=== PATIENT | male | born 1950 | race Caucasian/White ===

== ENCOUNTER 2019-10-11 09:17 | Emergency (ER) | payer OTHER, SELFPAY ==
[2019-10-11 09:20] VITALS: BP 144/93; PULSE 80; RESP 17; TEMP 36.4; O2SAT 94; BMI 21.8
--- NOTE | 2019-10-11 09:32 | XR_ITS ---
WS: [id number] LEFT FEMUR: 2 VIEW(S) TECHNIQUE: AP and lateral. HISTORY: trauma COMPARISON: None available. No fracture or dislocation. Soft tissue edematous changes over the LEFT hip and thigh. Extensive vascular calcifications in the femoral artery. XR/XR femur LT min 2V* [id number] Impression: Soft tissue edema lateral to the LEFT hip. No fracture.
--- NOTE | 2019-10-11 09:32 | XR_ITS ---
WS: [id number] LEFT SHOULDER: 2 VIEW(S) TECHNIQUE: Internal and external rotation. HISTORY: trauma COMPARISON: None available. No fracture or dislocation or soft tissue abnormality. Severe degenerative changes at the AC joint. Joint space narrowing with osteophytes. Mild narrowing o f the glenohumeral joint. Visualized LEFT upper lung is clear. XR/XR shoulder LT min 2V* [id number] IMPRESSION: 1. Severe LEFT AC joint arthritis. 2. Mild glenohumeral joint arthritis.
--- NOTE | 2019-10-11 09:33 | ED_ITS ---
HPI - Extremity Problem General: Chief complaint: Extremity Injury, Lower Stated complaint: left shoulder pain Time Seen by Provider: 10/11/19 09:29 History of Present Illness: HPI Narrative: Patient complains about left shoulder pain and left femur pain after a fall a few days ago. Says it hurts to walk and hurts to put pressure on his left mid femur and also has pain with movement of his left shoulder. Patient states that he fell from a standing position when he lost his balance due to kitchen foot on carpet Complaint: extremity pain Onset (ago): day(s) Pain Consistency: intermittent Location: left, upper extremity and lower extremity Severity scale (1-10): 4 Quality: aching Radiation: none Relieving factors: rest Exacerbating factors: range of motion and weight bearing Associated symptoms: Reports no associated symptoms; Deny chest pain, fever(s) or rash Review of Systems Const: Denies: fever, chills or body aches Eyes: Denies: change in vision or blurry vision ENMT: Denies: throat pain or nasal congestion Card: Denies: chest pain or shortness of breath on exertion Resp: Denies: shortness of breath, productive cough or non-productive cough GI: Denies: abdominal pain, nausea or vomiting : Denies: difficulty urinating Musc: Reports: extremity pain (Left femur and left shoulder) Skin/Breast: Denies: rash Neuro: Denies: headache Psych: Denies: anxiety or depression Brian/Lymph: Denies: easy bruising PFSH ED PFSH: Social History Smoking and tobacco status: current every day smoker Physical Exam Const: COMMON NORMALS: no apparent distress, average body habitus and oriented x3 HENMT: COMMON NORMALS: normocephalic HEAD & SCALP: normal to inspection and normocephalic FACE & SINUS: normal facial exam Eye: COMMON NORMALS: conjunctivae normal GENERAL EYE: normal appearance of both eyes CONJUNCTIVA: Yes conjunctivae normal Neck/C-Spine: COMMON NORMALS: no JVD Chest: COMMONS NORMALS: inspection of chest normal Resp: COMMON NORMALS: normal respiratory effort and clear to auscultation bilaterally AUSCULTATION: clear to auscultation bilaterally Cardio: COMMON NORMALS: no JVD, regular rate and regular rhythm RATE: regular rate RHYTHM: regular rhythm GI: COMMON NORMALS: normal to inspection, nondistended, normoactive bowel sounds Extremity: COMMON NORMALS: normal to inspection and full ROM LEFT UPPER EXTREMITY: Yes shoulder joint (Tenderness with range of motion of shoulder and resistive arm test is positive Apley scratch test positive for pain and rotator cuff in the inferior and superior aspect but does have full range of motion neurovascular status intact.) LEFT LOWER EXTREMITY: Yes upper leg (Tenderness to mid femur with palpation no swelling or bruising noted) Neuro: COMMON NORMALS: oriented x3 Course Vital Signs: Vital signs: Vital Signs Temperature 97.6 F 10/11/19 09:20 Pulse Rate 80 10/11/19 09:20 Respiratory Rate 17 10/11/19 09:20 Blood Pressure 144/93 10/11/19 09:20 Pulse Oximetry 94 10/11/19 09:20 Coding Level of Care Code ED [employer] for [employer]
[2019-10-11 10:31] VITALS: BP 144/93; PULSE 60; RESP 17; O2SAT 98
== END 2019-10-11 10:14 | disposition home or self-care (01) ==
PROVIDERS: Emergency Provider Nurse Practitioner Family; Family Provider Nurse Practitioner
DX: M25.512 Pain in left shoulder (principal); M79.652 Pain in left thigh; Z91.81 History of falling; F17.210 Nicotine dependence, cigarettes, uncomplicated
CPT/HCPCS: 12345; 73030; 73552; 99281

== ENCOUNTER 2019-11-08 11:56 | Emergency (ER) | payer OTHER, SELFPAY ==
[2019-11-08 12:04] VITALS: BP 191/123; PULSE 79; RESP 20; TEMP 36.8; O2SAT 95; BMI 22.1
[2019-11-08 12:12] VITALS: BP 170/122; PULSE 74; RESP 14; O2SAT 98
--- NOTE | 2019-11-08 12:39 | XRR_ITS ---
PROCEDURE INFORMATION: Exam: XR Chest, 1 View Exam date and time: 11/08/2019 1:31 PM Age: 68 years old Clinical indication: Pain and injury or trauma; Fall; Initial encounter; Blunt trauma (contusions or hematomas); Chest wall pain; Injury date: 11/06/19; Additional info: Frequent falls TECHNIQUE: Imaging protocol: XR of the chest Views: 1 view. COMPARISON: CT chest w con* [id number] 06/03/2019 3:04 PM FINDINGS: Lungs: Hyperinflation, without acute airspace disease. Pleural space: No pleural effusion. Heart/Mediastinum: Normal configuration of the heart. Bones/joints: Old left rib fractures. Degenerative change. XR/XR chest 1V portable [id number] IMPRESSION: Hyperinflation, without acute airspace or pleural disease.
--- NOTE | 2019-11-08 12:39 | ED_ITS ---
Documented by User: MARK Pond 11/09/19 17:25 HPI - General Adult General: Chief complaint: Extremity Injury, Upper Stated complaint: pain in left arm Time Seen by Provider: 11/08/19 12:13 Source: patient Mode of arrival: ambulatory Limitations: no limitations History of Present Illness: HPI narrative: Patient is a 68-year-old male who presents to ED today with a complaint of left shoulder and arm pain that he has had for quite a while . Patient tells me he initially noticed the pain following a fall. He states he has been falling frequently over the past several weeks. Patient tells me prior to the falls he does not experience lightheadedness or dizziness. He does not experience chest pains. Patient states he usually trips or stumbles over objects. Patient tells me his only past medical history is hypertension however when questioned about a tremor that I noticed he does tell me he sees a neurologist at [facility] for this. Looking at patient's medication he does take primidone and propranolol. Associated symptoms: Deny chest pain, confusion, dyspnea, headache(s), nausea, rash, palpitations, syncope or vomiting Review of Systems Const: Denies: fever(s) or chills Eyes: Denies: change in vision or blurry vision ENMT: Denies: throat pain, uvular edema, enlarged tonsils, odynophagia, mouth pain, swelling of lips/tongue, oral sores, dental pain, nasal discharge or nasal congestion Card: Denies: chest pain, palpitations, irregular heart rhythm, lightheadedness, syncope or dyspnea on exertion Resp: Denies: dyspnea, productive cough or pain on inspiration GI: Denies: abdominal pain, nausea, vomiting, heartburn or diarrhea : Denies: difficulty urinating or dysuria Musc: Reports: extremity pain (L arm) and joint pain (L shoulder ); Denies: neck pain or back pain Skin/Breast: Denies: rash Neuro: Reports: frequent falls; Denies: headache(s), numbness in extremities, weakness in extremities, sensory changes, lack of coordination, dizziness, vertigo, confusion or Slurred speech present [facility] ED PFSH: Social History Smoking and tobacco status: current every day smoker Physical Exam Const: COMMON NORMALS: no acute distress, average body habitus, patient oriented x3, no limitations, healthy appearing, alert and well nourished ORIENTATION/CONSCIOUSNESS: Yes oriented to person, Yes oriented to place and Yes oriented to time HENMT: COMMON NORMALS: normocephalic and atraumatic HEAD & SCALP: normocephalic and atraumatic THROAT: no uvular edema Eye: COMMON NORMALS: Equal, round and reactive pupils present, EOMs intact bilaterally, conjunctivae normal and no scleral icterus GENERAL EYE: appearance normal, both eyes and all related structures CONJUNCTIVA: Yes conjunctivae normal PUPIL: Yes Equal, round and reactive pupils present Neck/C-Spine: COMMON NORMALS: full ROM, no lymphadenopathy and no meningeal signs Resp: COMMON NORMALS: normal respiratory effort AUSCULTATION: bronchial breath sounds diffuse Cardio: COMMON NORMALS: regular rate and regular rhythm RATE: regular rate RHYTHM: regular rhythm GI: COMMON NORMALS: Normal to inspection, nondistended, normoactive bowel sounds present, Soft to palpation, non-tender, No hepatosplenomegaly present and no masses PALPATION: Yes Soft to palpation and Yes No hepatosplenomegaly present : COMMON NORMALS: Yes no CVA tenderness BLADDER/KIDNEY EXAM: Yes no CVA tenderness Back/Pelvis: COMMON NORMALS: no CVA tenderness, thoracic and lumbar spine normal to inspection, no thoracic nor lumbar tenderness, thoraco-lumbar ROM normal and straight leg raise negative bilaterally Extremity: OTHER: TTP L humerus and L shoulder Neuro: ESSENCE COMA SCALE: document GCS findings Wh[place] coma scale eye opening: Spontaneous [place] coma scale verbal response: Orientated [place] coma scale motor response: Obey commands [place] coma scale total score: 15 COMMON NORMALS: patient oriented x3, CN's II-XII intact bilaterally, moves all extremities, no focal motor deficits and no sensory deficits noted SENSORIUM/ORIENTATION: Yes alert, Yes oriented to person, Yes oriented to place and Yes oriented to time MENINGEAL SIGNS: Yes no meningeal signs OTHER: tremor noted-states this is chronic; reports he sees neurologist at [facility] Skin: COMMON NORMALS: no rashes or lesions noted GENERAL SKIN EXAM: no rashes or lesions noted Course Vital Signs: Vital signs: Vital Signs Temperature 98.3 F 11/08/19 12:04 Pulse Rate 65 11/08/19 16:26 Respiratory Rate 15 11/08/19 16:26 Blood Pressure 175/102 11/08/19 16:26 Pulse Oximetry 97 11/08/19 16:26 MDM - General Adult MDM Narrative: Medical decision making narrative: Records from [facility] were finally obtained and does show that patient follows up with the Parkinson's clinic however does not have an official diagnosis of Parkinson's. They are treating his essential tremor with primidone and propranolol. Patient was able to ambulate in the ED without any difficulties. I will go ahead and write for him a quad cane that he may start using in hopes that this may prevent any further falls at home. It appears his left shoulder and arm pain are fairly chronic as he has been seen in our ED for this previously. There are no fractures noted on his x-rays. Recommend he follow-up with PCP for this. On patient CT scan today there was a questionable very small 3 mm punctate hemorrhage versus calcification in his left basal ganglia. Patient assures me he has not had any trauma to his head recently. This was discussed with Dr. Villegas. We agreed to have patient return in 24 hours for a repeat scan. He was able to have a family member stay with him throughout the night for safety. Patient did have an elevated troponin on his initial but his delta was negative. EKGs showing sinus rhythm. He does not complain of chest pain or shortness of breath. He was mildly hyponatremic. Overall patient seems to be doing well here and would like to go home. [facility] Lab Data: Labs: Lab Results 11/08/19 11/08/19 11/08/19 Range/Units 13:14 13:14 13:14 WBC 5.0 (4.0-10.0) 10^3/ uL RBC 3.32 L (4.1-5.3) 10^6/u L Hgb 11.1 L (11.7-16.6) g/dL Hct 32.6 L (42.0-52.0) % MCV 98.2 H (80-94) fL MCH 33.4 (28.0-34.0) pg MCHC 34.0 (30.0-36.0) g/dL RDW 14.0 (12.1-15.1) % Plt Count 296 (130-400) 10^3/c mm MPV 9.8 (7.4-10.4) fL Neut % (Auto) 49.0 % Lymph % (Auto) 27.2 % [place] % (Auto) 13.1 % Eos % (Auto) 9.5 % Baso % (Auto) 1.0 % Neut # (Auto) 2.4 (1.8-7.7) 10^3/u L Lymph # (Auto) 1.4 (0.8-4.8) 10^3/u L [place] # (Auto) 0.7 (0.2-0.9) 10^3/u L Eos # (Auto) 0.5 (0.0-0.8) 10^3/u L Baso # (Auto) 0.1 (0.0-0.1) 10^3/u L Nucleated RBC % (a uto) 0 % Nucleated RBCs # 0.0 /100WBC Sodium 129 L (136-145) mmol/L Potassium 4.4 (3.5-5.1) mmol/L Chloride 89 L (98-107) mmol/L Carbon Dioxide 27 (22-29) mmol/L Anion Gap 17.4 (5-19) BUN 11 (8-23) mg/dL Creatinine 1.8 H (0.7-1.2) mg/dL GFR Calculation 37.9 L (90-130) mL/min Glucose 95 (65-115) mg/dL Calculated Osmolal ity 264 L (285-295) mOsm/k g Calcium 10.8 H (8.5-10.5) mg/dL Total Bilirubin 0.2 (0.15-1.2) mg/dL AST 23 (0-40) U/L ALT 11 (0-41) U/L Alkaline Phosphata se 53 (40-130) IU/L Troponin T Baselin e 58 H (0-15) ng/mL Troponin T 120 Min alutiiq (0-15) ng/mL Delta Troponin T (0-10) ABS# Total Protein 8.2 (6.6-8.7) g/dL Albumin 4.8 (3.5-5.2) g/dL Globulin 3.4 (1.3-4.6) g/dL Urine Color (Yellow) Urine Appearance (CLEAR) Urine pH (5-7) Ur Specific Gravit y (1.005-1.030) Urine Protein (Negative) Urine Glucose (UA) (Normal) Urine Ketones (Negative) Urine Blood (Negative) Urine Nitrate (Negative) Urine Bilirubin (NEGATIVE) Urine Urobilinogen (Negative) mg/dL Ur Leukocyte Ashanti ase (Negative) 11/08/19 11/08/19 Range/Units 14:25 15:17 WBC (4.0-10.0) 10^3/ uL RBC (4.1-5.3) 10^6/u L Hgb (11.7-16.6) g/dL Hct (42.0-52.0) % MCV (80-94) fL MCH (28.0-34.0) pg MCHC (30.0-36.0) g/dL RDW (12.1-15.1) % Plt Count (130-400) 10^3/c mm MPV (7.4-10.4) fL Neut % (Auto) % Lymph % (Auto) % [place] % (Auto) % Eos % (Auto) % Baso % (Auto) % Neut # (Auto) (1.8-7.7) 10^3/u L Lymph # (Auto) (0.8-4.8) 10^3/u L [place] # (Auto) (0.2-0.9) 10^3/u L Eos # (Auto) (0.0-0.8) 10^3/u L Baso # (Auto) (0.0-0.1) 10^3/u L Nucleated RBC % (a uto) % Nucleated RBCs # /100WBC Sodium (136-145) mmol/L Potassium (3.5-5.1) mmol/L Chloride (98-107) mmol/L Carbon Dioxide (22-29) mmol/L Anion Gap (5-19) BUN (8-23) mg/dL Creatinine (0.7-1.2) mg/dL GFR Calculation (90-130) mL/min Glucose (65-115) mg/dL Calculated Osmolal ity (285-295) mOsm/k g Calcium (8.5-10.5) mg/dL Total Bilirubin (0.15-1.2) mg/dL AST (0-40) U/L ALT (0-41) U/L Alkaline Phosphata se (40-130) IU/L Troponin T Baselin e (0-15) ng/mL Troponin T 120 Min alutiiq 47.76 H (0-15) ng/mL Delta Troponin T -10.24 L (0-10) ABS# Total Protein (6.6-8.7) g/dL Albumin (3.5-5.2) g/dL Globulin (1.3-4.6) g/dL Urine Color Yellow (Yellow) Urine Appearance Clear (CLEAR) Urine pH 7 (5-7) Ur Specific Gravit y 1.005 (1.005-1.030) Urine Protein Neg (Negative) Urine Glucose (UA) Norm (Normal) Urine Ketones Negative (Negative) Urine Blood Neg (Negative) Urine Nitrate Negative (Negative) Urine Bilirubin Neg (NEGATIVE) Urine Urobilinogen Norm (Negative) mg/dL Ur Leukocyte Ashanti ase Negative (Negative) Imaging Data^: CT Head: Radiologist's impression: [place] [address] CT Scan Report Signed Patient: Ministerio Arreola Unit #: [id number] : 1950 Age/Sex: 68 / M ADM Date: 11/08/19 Loc: ER Room/Bed: Attending Dr: Ordering Provider/Ordering MD: Karli Fraser Date of Service: 11/08/19 Procedure(s): CT head wo con* [id number] Accession Number(s): [id number] Report Number: [id number] WS: [id number] CT HEAD NONCONTRAST HISTORY: frequent falls TECHNIQUE: Contiguous axial imaging performed through the brain in 2.5 mm imaging. Bone and soft tissue windows. Sagittal and coronal reformats reviewed. All CT scans at [facility] use at least one of these dose optimization techniques: automated exposure control; mA and/or kV adjustment per patient size (includes targeted exams where dose is matched to clinical indication); or iterative reconstruction. DLP: 885.48 mGy.cm COMPARISON: None available. No large intracranial hemorrhage. 3 mm focal area of increased density in the LEFT basal ganglia. Calcification versus tiny area of hemorrhage. There are adjacent calcifications also. Cerebral atrophy and cerebellar atrophy. There is prior moderate-sized RIGHT cerebellar infarct. Chronic ischemic changes in the supratentorial white matter. Mild atrophy. Ventricles: Normal size with no hydrocephalus. No inferior displacement of cerebellar tonsils. Paranasal sinuses: As visualized are clear. Mastoid air cells: Well pneumatized. Calvarium and scalp: Skull is intact. Small amount of soft tissue edema in the scalp over the posterior parietal bone. Extensive atherosclerosis within the intracranial carotid arteries. CT/CT head wo con* [id number] IMPRESSION: 1. No acute intracranial hemorrhage or edema. 2. 3 mm possible punctate hemorrhage in the LEFT basal ganglia. Could be a small developing calcification as there are adjacent calcifications. No surrounding edema. 3. Remote RIGHT cerebellar infarct. 4. Cerebral atrophy and chronic ischemic disease. Dictated By: Tawanna Real DO Signed By: Tawanna Real DO Signed Date/Time: 11/08/19 1259 DD/ 1255 CXR: Radiologist's impression: [address] [address] XRay Report Signed Patient: Ministerio Arreola Unit #: [id number] : 1950 1 Age/Sex: 68 / M ADM Date: 11/08/19 Loc: ER Room/Bed: Attending Dr: Ordering Provider/Ordering MD: Karli Fraser Date of Service: 11/08/19 Procedure(s): XR chest 1V portable 66026 Accession Number(s): [id number] Report Number: [id number] PROCEDURE INFORMATION: Exam: XR Chest, 1 View Exam date and time: 11/08/2019 1:31 PM Age: 68 years old Clinical indication: Pain and injury or trauma; Fall; Initial encounter; Blunt trauma (contusions or hematomas); Chest wall pain; Injury date: 11/06/19; Additional info: Frequent falls TECHNIQUE: Imaging protocol: XR of the chest Views: 1 view. COMPARISON: CT chest w con* [id number] 06/03/2019 3:04 PM FINDINGS: Lungs: Hyperinflation, without acute airspace disease. Pleural space: No pleural effusion. Heart/Mediastinum: Normal configuration of the heart. Bones/joints: Old left rib fractures. Degenerative change. XR/XR chest 1V portable [id number] IMPRESSION: Hyperinflation, without acute airspace or pleural disease. Dictated By: Alhaji Nelson MD Signed By: Alhaji Nelson MD Signed Date/Time: 11/08/191421 DD/ 1421 L humerus XR: Radiologist's impression: [address] [address] XRay Report Signed Patient: Ministerio Arreola Unit #: [id number] : 1950 Age/Sex: 68 / M ADM Date: 11/08/19 Loc: ER Room/Bed: Attending Dr: Ordering Provider/Ordering MD: Karli Fraser Date of Service: 11/08/19 Procedure(s): [place] [address] Accession Number(s): [id number] Report Number: [id number] PROCEDURE INFORMATION: Exam: XR Left Humerus Exam date and time: 11/08/2019 1:31 PM Age: 68 years old Clinical indication: Pain and injury or trauma; Fall; Initial encounter; Blunt trauma (contusions or hematomas; Arm, upper; Left; Upper arm and shoulder; Injury date: 11/06/19; Additional info: Fall/pain TECHNIQUE: Imaging protocol: XR Left humerus Views: 2 or more views. COMPARISON: No relevant prior studies available. FINDINGS: Bones/joints: Old left rib fractures. No acute bony injury in the left humerus. Degenerative change. Soft tissues: Soft tissue calcifications about the elbow. XR/[place] [id number] IMPRESSION: No acute bony injury in the left humerus. Dictated By: Alhaji Nelson MD Signed By: Alhaji Nelson MD Signed Date/Time: 11/08/191422 DD/ 1422 L shoulder XR: Radiologist's impression: [address] [address] XRay Report Signed Patient: Ministerio Arreola Unit #: [id number] : 1950 Age/Sex: 68 / M ADM Date: 11/08/19 Loc: ER Room/Bed: Attending Dr: Ordering Provider/Ordering MD: Karli Fraser Date of Service: 11/08/19 Procedure(s): XR shoulder LT min 2V* [id number] Accession Number(s): [id number] Report Number: [id number] PROCEDURE INFORMATION: Exam: XR Left Shoulder Exam date and time: 11/08/2019 1:31 PM Age: 68 years old Clinical indication: Pain and injury or trauma; Fall; Initial encounter; Blunt trauma (contusions or hematomas; Shoulder; Left; Injury date: ; Additional info: Pain/falls TECHNIQUE: Imaging protocol: XR Left shoulder. Views: 2 or more views. COMPARISON: CR XR shoulder LT min 2V* [id number] 10/11/2019 9:34 AM FINDINGS: Bones/joints: Severe degenerative change. Old left rib fractures. No acute bony injury or malalignment in the left shoulder. Soft tissues: Periarticular calcification about the acromioclavicular joint. XR/XR shoulder LT min 2V* [id number] IMPRESSION: 1. Severe degenerative change. 2. No acute bony injury or malalignment in the left shoulder. Dictated By: Alhaji Nelson MD Signed By: Alhaji Nelson MD Signed Date/Time: 11/08/191420 DD/ 19 EKG Data^: EKG 1: EKG interpretation date: 11/08/19 EKG interpretation time: 13:27 Interpretation: Sinus rhythm Rate 63 No acute ischemic changes noted Computer generated interpretation: Chest X-Ray 11/08/19 12:39 IMPRESSION: Hyperinflation, without acute airspace or pleural disease. Head CT 11/08/19 12:39 IMPRESSION: 1. No acute intracranial hemorrhage or edema. 2. 3 mm possible punctate hemorrhage in the LEFT basal ganglia. Could be a small developing calcification as there are adjacent calcifications. No surrounding edema. 3. Remote RIGHT cerebellar infarct. 4. Cerebral atrophy and chronic ischemic disease. Humerus X-Ray 11/08/19 12:39 IMPRESSION: No acute bony injury in the left humerus. Shoulder X-Ray 11/08/19 12:39 IMPRESSION: 1. Severe degenerative change. 2. No acute bony injury or malalignment in the left shoulder. EKG 2: EKG interpretation date: 11/08/19 EKG interpretation time: 14:54 Interpretation: Sinus rhythm Rate 70 No ischemic changes noted No changes from EKG done earlier today Computer generated interpretation: Chest X-Ray 11/08/19 12:39 IMPRESSION: Hyperinflation, without acute airspace or pleural disease. Head CT 11/08/19 12:39 IMPRESSION: 1. No acute intracranial hemorrhage or edema. 2. 3 mm possible punctate hemorrhage in the LEFT basal ganglia. Could be a small developing calcification as there are adjacent calcifications. No surrounding edema. 3. Remote RIGHT cerebellar infarct. 4. Cerebral atrophy and chronic ischemic disease. Humerus X-Ray 11/08/19 12:39 IMPRESSION: No acute bony injury in the left humerus. Shoulder X-Ray 11/08/19 12:39 IMPRESSION: 1. Severe degenerative change. 2. No acute bony injury or malalignment in the left shoulder. Discharge Plan Discharge Patient Disposition: Home, Self-Care Clinical Impression: Essential tremor, Chronic left shoulder pain, Frequent falls Condition: Stable Prescriptions: No Action primidone 50 mg Tablet 50 mg PO TID RF: 0 propranolol 60 mg Tablet 60 mg PO DAILY RF: 0 amlodipine [Norvasc] 5 mg Tablet 5 mg PO DAILY RF: 0 tamsulosin [Flomax] 0.4 mg Capsule 0.4 mg PO DAILY RF: 0 hydrochlorothiazide 25 mg Tablet 12.5 mg PO DAILY RF: 0 lisinopril 40 mg Tablet 40 mg PO DAILY RF: 0 multivitamin Tablet 1 tab PO DAILY RF: 0 Discharge Orders: Discharge Order (Routine); Ordered 11/08/19 Ordered By: Karli Fraser Discharge Diet: Usual diet Discharge Activity: Resume usual activity Activity Restrictions/Additional Instructions: As discussed you need to have somebody stay with you throughout the night. You need to return to the emergency department for any complaints of a headache or altered mental status. You need to return around 5 PM tomorrow for repeat head CT. Please follow up with primary care as soon as possible for further evaluation. Return to ED for any concerns you have. Discharge Date/Time: 11/08/19 17:09 Coding Level of Care Code ED Stock Worker for Chg Fwd Exam Comprehensive Documented by User: Olga Lidia Villegas MD 11/18/19 11:00 [facility] - General Adult General: Chief complaint: Extremity Injury, Upper Stated complaint: pain in left arm Time Seen by Provider: 11/08/19 12:13 [facility] ED PFSH: Social History Smoking and tobacco status: current every day smoker Course Vital Signs: Vital signs: Vital Signs Temperature 98.3 F 11/08/19 12:04 Pulse Rate 65 11/08/19 16:26 Respiratory Rate 15 11/08/19 16:26 Blood Pressure 175/102 11/08/19 16:26 Pulse Oximetry 97 11/08/19 16:26 [facility] - General Adult Lab Data: Labs: Lab Results 11/08/19 11/08/19 11/08/19 Range/Units 13:14 13:14 13:14 WBC 5.0 (4.0-10.0) 10^3/ uL RBC 3.32 L (4.1-5.3) 10^6/u L Hgb 11.1 L (11.7-16.6) g/dL Hct 32.6 L (42.0-52.0) % MCV 98.2 H (80-94) fL MCH 33.4 (28.0-34.0) pg MCHC 34.0 (30.0-36.0) g/dL RDW 14.0 (12.1-15.1) % Plt Count 296 (130-400) 10^3/c mm MPV 9.8 (7.4-10.4) fL Neut % (Auto) 49.0 % Lymph % (Auto) 27.2 % [place] % (Auto) 13.1 % Eos % (Auto) 9.5 % Baso % (Auto) 1.0 % Neut # (Auto) 2.4 (1.8-7.7) 10^3/u L Lymph # (Auto) 1.4 (0.8-4.8) 10^3/u L [place] # (Auto) 0.7 (0.2-0.9) 10^3/u L Eos # (Auto) 0.5 (0.0-0.8) 10^3/u L Baso # (Auto) 0.1 (0.0-0.1) 10^3/u L Nucleated RBC % (a uto) 0 % Nucleated RBCs # 0.0 /100WBC Sodium 129 L (136-145) mmol/L Potassium 4.4 (3.5-5.1) mmol/L Chloride 89 L (98-107) mmol/L Carbon Dioxide 27 (22-29) mmol/L Anion Gap 17.4 (5-19) BUN 11 (8-23) mg/dL Creatinine 1.8 H (0.7-1.2) mg/dL GFR Calculation 37.9 L (90-130) mL/min Glucose 95 (65-115) mg/dL Calculated Osmolal ity 264 L (285-295) mOsm/k g Calcium 10.8 H (8.5-10.5) mg/dL Total Bilirubin 0.2 (0.15-1.2) mg/dL AST 23 (0-40) U/L ALT 11 (0-41) U/L Alkaline Phosphata se 53 (40-130) IU/L Troponin T Baselin e 58 H (0-15) ng/mL Troponin T 120 Min alutiiq (0-15) ng/mL Delta Troponin T (0-10) ABS# Total Protein 8.2 (6.6-8.7) g/dL Albumin 4.8 (3.5-5.2) g/dL Globulin 3.4 (1.3-4.6) g/dL Urine Color (Yellow) Urine Appearance (CLEAR) Urine pH (5-7) Ur Specific Gravit y (1.005-1.030) Urine Protein (Negative) Urine Glucose (UA) (Normal) Urine Ketones (Negative) Urine Blood (Negative) Urine Nitrate (Negative) Urine Bilirubin (NEGATIVE) Urine Urobilinogen (Negative) mg/dL Ur Leukocyte Ashanti ase (Negative) 11/08/19 11/08/19 Range/Units 14:25 15:17 WBC (4.0-10.0) 10^3/ uL RBC (4.1-5.3) 10^6/u L Hgb (11.7-16.6) g/dL Hct (42.0-52.0) % MCV (80-94) fL MCH (28.0-34.0) pg MCHC (30.0-36.0) g/dL RDW (12.1-15.1) % Plt Count (130-400) 10^3/c mm MPV (7.4-10.4) fL Neut % (Auto) % Lymph % (Auto) % [place] % (Auto) % Eos % (Auto) % Baso % (Auto) % Neut # (Auto) (1.8-7.7) 10^3/u L Lymph # (Auto) (0.8-4.8) 10^3/u L [place] # (Auto) (0.2-0.9) 10^3/u L Eos # (Auto) (0.0-0.8) 10^3/u L Baso # (Auto) (0.0-0.1) 10^3/u L Nucleated RBC % (a uto) % Nucleated RBCs # /100WBC Sodium (136-145) mmol/L Potassium (3.5-5.1) mmol/L Chloride (98-107) mmol/L Carbon Dioxide (22-29) mmol/L Anion Gap (5-19) BUN (8-23) mg/dL Creatinine (0.7-1.2) mg/dL GFR Calculation (90-130) mL/min Glucose (65-115) mg/dL Calculated Osmolal ity (285-295) mOsm/k g Calcium (8.5-10.5) mg/dL Total Bilirubin (0.15-1.2) mg/dL AST (0-40) U/L ALT (0-41) U/L Alkaline Phosphata se (40-130) IU/L Troponin T Baselin e (0-15) ng/mL Troponin T 120 Min alutiiq 47.76 H (0-15) ng/mL Delta Troponin T -10.24 L (0-10) ABS# Total Protein (6.6-8.7) g/dL Albumin (3.5-5.2) g/dL Globulin (1.3-4.6) g/dL Urine Color Yellow (Yellow) Urine Appearance Clear (CLEAR) Urine pH 7 (5-7) Ur Specific Gravit y 1.005 (1.005-1.030) Urine Protein Neg (Negative) Urine Glucose (UA) Norm (Normal) Urine Ketones Negative (Negative) Urine Blood Neg (Negative) Urine Nitrate Negative (Negative) Urine Bilirubin Neg (NEGATIVE) Urine Urobilinogen Norm (Negative) mg/dL Ur Leukocyte Ashanti ase Negative (Negative) EKG Data^: EKG 1: Computer generated interpretation: Chest X-Ray 11/08/19 12:39 IMPRESSION: Hyperinflation, without acute airspace or pleural disease. Head CT 11/08/19 12:39 IMPRESSION: 1. No acute intracranial hemorrhage or edema. 2. 3 mm possible punctate hemorrhage in the LEFT basal ganglia. Could be a small developing calcification as there are adjacent calcifications. No surrounding edema. 3. Remote RIGHT cerebellar infarct. 4. Cerebral atrophy and chronic ischemic disease. Humerus X-Ray 11/08/19 12:39 IMPRESSION: No acute bony injury in the left humerus. Shoulder X-Ray 11/08/19 12:39 IMPRESSION: 1. Severe degenerative change. 2. No acute bony injury or malalignment in the left shoulder. EKG 2: Computer generated interpretation: Chest X-Ray 11/08/19 12:39 IMPRESSION: Hyperinflation, without acute airspace or pleural disease. Head CT 11/08/19 12:39 IMPRESSION: 1. No acute intracranial hemorrhage or edema. 2. 3 mm possible punctate hemorrhage in the LEFT basal ganglia. Could be a small developing calcification as there are adjacent calcifications. No surrounding edema. 3. Remote RIGHT cerebellar infarct. 4. Cerebral atrophy and chronic ischemic disease. Humerus X-Ray 11/08/19 12:39 IMPRESSION: No acute bony injury in the left humerus. Shoulder X-Ray 11/08/19 12:39 IMPRESSION: 1. Severe degenerative change. 2. No acute bony injury or malalignment in the left shoulder. Discharge Plan Discharge Patient Disposition: Home, Self-Care Clinical Impression: Essential tremor, Chronic left shoulder pain, Frequent falls Condition: Stable Prescriptions: No Action primidone 50 mg Tablet 50 mg PO TID RF: 0 propranolol 60 mg Tablet 60 mg PO DAILY RF: 0 amlodipine [Norvasc] 5 mg Tablet 5 mg PO DAILY RF: 0 tamsulosin [Flomax] 0.4 mg Capsule 0.4 mg PO DAILY RF: 0 hydrochlorothiazide 25 mg Tablet 12.5 mg PO DAILY RF: 0 lisinopril 40 mg Tablet 40 mg PO DAILY RF: 0 multivitamin Tablet 1 tab PO DAILY RF: 0 Discharge Orders: Discharge Order (Routine); Ordered 11/08/19 Ordered By: Karli Fraser Discharge Diet: Usual diet Discharge Activity: Resume usual activity Activity Restrictions/Additional Instructions: As discussed you need to have somebody stay with you throughout the night. You need to return to the emergency department for any complaints of a headache or altered mental status. You need to return around 5 PM tomorrow for repeat head CT. Please follow up with primary care as soon as possible for further evaluation. Return to ED for any concerns you have. Discharge Date/Time: 11/08/19 17:09 Coding Level of Care Code ED Stock Worker for Micky Fwcarrillo Exam Comprehensive
--- NOTE | 2019-11-08 12:39 | ECG_ITS ---
Measurements Intervals [place] Rate: 70 P: 76 IA: 183 QRS: 68 QRSD: 86 T: 66 QT: 391 QTc: 422 SINUS RHYTHM No previous ECG available for comparison Electronically Signed On 11-09-2019 16:21:35 CDT by Cheryl Hester M.D. [email or web address]
--- NOTE | 2019-11-08 12:39 | XRR_ITS ---
PROCEDURE INFORMATION: Exam: XR Left Shoulder Exam date and time: 11/08/2019 1:31 PM Age: 68 years old Clinical indication: Pain and injury or trauma; Fall; Initial encounter; Blunt trauma (contusions or hematomas; Shoulder; Left; Injury date: ; Additional info: Pain/falls TECHNIQUE: Imaging protocol: XR Left shoulder. Views: 2 or more views. COMPARISON: CR XR shoulder LT min 2V* [id number] 10/11/2019 9:34 AM FINDINGS: Bones/joints: Severe degenerative change. Old left rib fractures. No acute bony injury or malalignment in the left shoulder. Soft tissues: Periarticular calcification about the acromioclavicular joint. XR/XR shoulder LT min 2V* [id number] IMPRESSION: 1. Severe degenerative change. 2. No acute bony injury or malalignment in the left shoulder.
--- NOTE | 2019-11-08 12:39 | CT_ITS ---
WS: [id number] CT HEAD NONCONTRAST HISTORY: frequent falls TECHNIQUE: Contiguous axial imaging performed through the brain in 2.5 mm imaging. Bone and soft tiss ue windows. Sagittal and coronal reformats reviewed. All CT scans at [facility] use at le ast one of these dose optimization techniques: automated exposure control; mA and/or kV adjustment pe r patient size (includes targeted exams where dose is matched to clinical indication); or iterative r econstruction. DLP: 885.48 mGy.cm COMPARISON: None available. No large intracranial hemorrhage. 3 mm focal area of increased density in the LEFT basal ganglia. Surya cification versus tiny area of hemorrhage. There are adjacent calcifications also. Cerebral atrophy a nd cerebellar atrophy. There is prior moderate-sized RIGHT cerebellar infarct. Chronic ischemic norton es in the supratentorial white matter. Mild atrophy. Ventricles: Normal size with no hydrocephalus. No inferior displacement of cerebellar tonsils. Paranasal sinuses: As visualized are clear. Mastoid air cells: Well pneumatized. Calvarium and scalp: Skull is intact. Small amount of soft tissue edema in the scalp over the posteri or parietal bone. Extensive atherosclerosis within the intracranial carotid arteries. CT/CT head wo con* [id number] IMPRESSION: 1. No acute intracranial hemorrhage or edema. 2. 3 mm possible punctate hemorrhage in the LEFT basal ganglia. Could be a sma ll developing calcification as there are adjacent calcifications. No surroundin g edema. 3. Remote RIGHT cerebellar infarct. 4. Cerebral atrophy and chronic ischemic disease.
[2019-11-08 13:26] LABS: Basophils # 0.1 10^3/uL (0.0-0.1); Eosinophils # 0.5 10^3/uL (0.0-0.8); Eosinophils % 9.5 %; Hematocrit 32.6 % (42.0-52.0); Hemoglobin 11.1 g/dL (11.7-16.6); Lymphocytes # 1.4 10^3/uL (0.8-4.8); Lymphocytes % 27.2 %; Mean Corpuscular Hemoglobin 33.4 pg (28.0-34.0); Mean Corpuscular Volume 98.2 fL (80-94); Mean Platelet Volume 9.8 fL (7.4-10.4); Monocytes # 0.7 10^3/uL (0.2-0.9); Monocytes % 13.1 %; Neutrophils # 2.4 10^3/uL (1.8-7.7); Nucleated Red Blood Cells % 0 %; Platelet Count 296 10^3/cmm (130-400); Red Blood Count 3.32 10^6/uL (4.1-5.3)
[2019-11-08 13:44] VITALS: BP 192/110; PULSE 64; RESP 18; O2SAT 95
[2019-11-08 13:45] LABS: Alanine Aminotransferase 11 U/L (0-41); Albumin Level 4.8 g/dL (3.5-5.2); Alkaline Phosphatase 53 IU/L (40-130); Anion Gap 17.4 (5-19); Aspartate Amino Transferase 23 U/L (0-40); Blood Urea Nitrogen 11 mg/dL (8-23); Calcium 10.8 mg/dL (8.5-10.5); Carbon Dioxide 27 mmol/L (22-29); Chloride 89 mmol/L (98-107); Globulin 3.4 g/dL (1.3-4.6); Glomerular Filtration Rate 37.9 mL/min (90-130); Glucose 95 mg/dL (65-115); Osmolality Calculated 264 mOsm/kg (285-295); Potassium 4.4 mmol/L (3.5-5.1); Sodium 129 mmol/L (136-145); Total Bilirubin 0.2 mg/dL (0.15-1.2); Total Protein 8.2 g/dL (6.6-8.7)
[2019-11-08 13:47] LABS: Troponin(5th) Baseline 58 ng/mL (0-15)
[2019-11-08 14:24] VITALS: BP 167/98; PULSE 63; RESP 14; O2SAT 95
[2019-11-08] MEDS: sodium chloride 0.9% 1,000 ML 999 ML IV (14:25)
[2019-11-08 14:36] LABS: Add Urine Microscopic? NO
[2019-11-08 14:43] LABS: Bilirubin Urine Neg (NEGATIVE); Blood Urine Neg (Negative); Glucose Urine UA Norm (Normal); Ketones Urine Negative (Negative); Leukocyte Esterase Urine Negative (Negative); Nitrate Urine Negative (Negative); Protein Urine Neg (Negative); Specific Gravity, Urine 1.005 (1.005-1.030); Urine Appearance Clear (CLEAR); Urine Color Yellow (Yellow); Urobilinogen Urine Norm (Negative); pH Urine 7 (5-7)
[2019-11-08 15:54] LABS: Troponin 5 2HR 47.76 ng/mL (0-15)
[2019-11-08 16:26] VITALS: BP 175/102; PULSE 65; RESP 15; O2SAT 97
--- NOTE | 2019-11-08 18:39 | ECG_ITS ---
Measurements Intervals [place] Rate: 63 P: 67 RI: 187 QRS: 69 QRSD: 84 T: 69 QT: 384 QTc: 394 SINUS RHYTHM No previous ECG available for comparison Electronically Signed On 11-09-2019 16:29:03 CDT by Cheryl Hester M.D. [email or web address]
== END 2019-11-08 17:09 | disposition home or self-care (01) ==
PROVIDERS: Emergency Provider Physician Assistant
DX: G25.0 Essential tremor (principal); G89.29 Other chronic pain; M25.512 Pain in left shoulder; R29.6 Repeated falls; F17.210 Nicotine dependence, cigarettes, uncomplicated
CPT/HCPCS: 12345; 70450; 71045; 73030; 73060; 80053; 81003; 84484; 85025; 93005; 96360; 99283; 99284; A9270; J7030

== ENCOUNTER 2019-11-09 16:55 | Emergency (ER) | payer OTHER, SELFPAY ==
--- NOTE | 2019-11-09 16:57 | CTR_ITS ---
PROCEDURE INFORMATION: Exam: CT Head Without Contrast Exam date and time: 11/09/2019 4:58 PM Age: 68 years old Clinical indication: Condition or disease; Other: Abnormal head CT 24 hours ago; Additional info: 24 hr scan; Yesterday showed hemorrhage vs calcification TECHNIQUE: Imaging protocol: Computed tomography of the head without contrast. Radiation optimization: All CT scans at this facility use at least one of these dose optimization techniques: automated exposure control; mA and/or kV adjustment per patient size (includes targeted exams where dose is matched to clinical indication); or iterative reconstruction. COMPARISON: CT head wo con* [id number] 11/08/2019 12:46 PM RADIATION DOSE METRICS: Total DLP: 893.88 mGy-cm FINDINGS: Brain: Old right cerebellar infarction. Cerebral and cerebellar atrophy with mild ventricular dilatation greater than that anticipated for patient's chronological age. Mild small vessel ischemic disease with senile periventricular leukomalacia. Metabolic basal ganglia calcifications. Currently no visible evidence of active or acute intracranial pathologic process, trauma, or hemorrhage. No visible acute or subacute infarct/ischemic event. Ventricles: No ventriculomegaly. Bones/joints: Unremarkable. No acute fracture. Sinuses: Visualized sinuses are unremarkable. No fluid levels. Mastoid air cells: Visualized mastoid air cells are well aerated. Soft tissues: Unremarkable. Vasculature: Cerebral arterial sclerosis. CT/CT head wo con* [id number] IMPRESSION: 1. No visible intracranial hemorrhage. 2. Old right cerebellar infarction. 3. Small vessel ischemic disease with senile periventricular leukomalacia. 4. Atrophic changes greater than that anticipated for patient's chronological age. Radiation Dose CTDIVOL = (mGy): DLP = 893.88 (mGy-cm)
[2019-11-09 17:06] VITALS: BP 137/84; PULSE 82; RESP 14; TEMP 37.1; O2SAT 95; BMI 22.1
--- NOTE | 2019-11-09 17:09 | W.ED.GENADLT ---
HPI - General Adult General: Chief complaint: General Medical Stated complaint: returned for cat scan Time Seen by Provider: 11/09/19 16:57 Source: patient Mode of arrival: ambulatory Limitations: no limitations History of Present Illness: HPI narrative: Patient is a very nice 68-year-old male who presents to ED today for reevaluation after I had requested patient return in 24 hours for repeat head CT scan. Patient was seen here by myself yesterday for complaints of frequent falls most likely related to a shuffling gait related to his essential tremor. Patient is being seen at a Parkinson's clinic at [facility] for this and is being treated with primidone and propranolol. Due to the frequent falls yesterday's work-up included a head CT. Report at that time read: CT/CT head wo con* [id number] IMPRESSION: 1. No acute intracranial hemorrhage or edema. 2. 3 mm possible punctate hemorrhage in the LEFT basal ganglia. Could be a small developing calcification as there are adjacent calcifications. No surrounding edema. 3. Remote RIGHT cerebellar infarct. 4. Cerebral atrophy and chronic ischemic disease. I had spoken to Dr. Real who was the radiologist who agreed that a repeat CT scan in 24 hours was appropriate to differentiate between hemorrhage and calcification. Dr. Villegas was also aware of these findings and agreed with plan. Patient states throughout the night yesterday and all day today he has felt normal. Associated symptoms: Deny chest pain, confusion, dyspnea, headache(s), nausea or vomiting Review of Systems Eyes: Denies: change in vision, blurry vision, photophobia or floaters Card: Denies: chest pain Resp: Denies: dyspnea GI: Denies: nausea or vomiting Musc: Denies: neck pain or back pain Neuro: Denies: headache(s), numbness in extremities, sensory changes, dizziness, confusion or Slurred speech present [facility] ED PFSH: Social History Smoking and tobacco status: current every day smoker Physical Exam Const: COMMON NORMALS: no acute distress, average body habitus, patient oriented x3, no limitations, healthy appearing, alert and well nourished ORIENTATION/CONSCIOUSNESS: Yes oriented to person, Yes oriented to place and Yes oriented to time OTHER: essential tremor HENMT: COMMON NORMALS: normocephalic, atraumatic, hearing grossly normal bilaterally, external ears normal, EAC's normal and TM's normal bilaterally HEAD & SCALP: normal to inspection, normocephalic and atraumatic EXTERNAL EAR: Yes external ears normal EXTERNAL AUDITORY CANAL: EAC's normal TYMPANIC MEMBRANE: TM's normal bilaterally Neck/C-Spine: COMMON NORMALS: full ROM CERVICAL SPINE: Yes cervical ROM normal, No pain with cervical ROM, No Cervical spine tenderness and No Paracervical muscle tenderness Neuro: BELEN COMA SCALE: document GCS findings [place] coma scale eye opening: Spontaneous [place] coma scale verbal response: Orientated [place] coma scale motor response: Obey commands [place] coma scale total score: 15 COMMON NORMALS: patient oriented x3, CN's II-XII intact bilaterally, moves all extremities, no focal motor deficits and no sensory deficits noted SENSORIUM/ORIENTATION: Yes alert, Yes oriented to person, Yes oriented to place and Yes oriented to time Skin: COMMON NORMALS: no rashes or lesions noted GENERAL SKIN EXAM: no rashes or lesions noted Course Vital Signs: Vital signs: Vital Signs Temperature 98.7 F 11/09/19 17:06 Pulse Rate 72 11/09/19 17:57 Respiratory Rate 18 11/09/19 17:57 Blood Pressure 126/73 11/09/19 17:57 Pulse Oximetry 97 11/09/19 17:57 MDM - General Adult Imaging Data^: CT Head: Radiologist's impression: [address] [address] [address] Scan Report Signed Patient: Ministerio Arreola Unit #: [id number] : 1950 Age/Sex: 68 / M ADM Date: 11/09/19 Loc: ER Room/Bed: Attending Dr: Ordering Provider/Ordering MD: Karli Fraser Date of Service: 11/09/19 Procedure(s): CT head wo con* [id number] Accession Number(s): [id number] Report Number: [id number] PROCEDURE INFORMATION: Exam: CT Head Without Contrast Exam date and time: 11/09/2019 4:58 PM Age: 68 years old Clinical indication: Condition or disease; Other: Abnormal head CT 24 hours ago; Additional info: 24 hr scan; Yesterday showed hemorrhage vs calcification TECHNIQUE: Imaging protocol: Computed tomography of the head without contrast. Radiation optimization: All CT scans at this facility use at least one of these dose optimization techniques: automated exposure control; mA and/or kV adjustment per patient size (includes targeted exams where dose is matched to clinical indication); or iterative reconstruction. COMPARISON: CT head wo con* [id number] 11/08/2019 12:46 PM RADIATION DOSE METRICS: Total DLP: 893.88 mGy-cm FINDINGS: Brain: Old right cerebellar infarction. Cerebral and cerebellar atrophy with mild ventricular dilatation greater than that anticipated for patient's chronological age. Mild small vessel ischemic disease with senile periventricular leukomalacia. Metabolic basal ganglia calcifications. Currently no visible evidence of active or acute intracranial pathologic process, trauma, or hemorrhage. No visible acute or subacute infarct/ischemic event. Ventricles: No ventriculomegaly. Bones/joints: Unremarkable. No acute fracture. Sinuses: Visualized sinuses are unremarkable. No fluid levels. Mastoid air cells: Visualized mastoid air cells are well aerated. Soft tissues: Unremarkable. Vasculature: Cerebral arterial sclerosis. CT/CT head wo con* [id number] IMPRESSION: 1. No visible intracranial hemorrhage. 2. Old right cerebellar infarction. 3. Small vessel ischemic disease with senile periventricular leukomalacia. 4. Atrophic changes greater than that anticipated for patient's chronological age. Radiation Dose CTDIVOL = (mGy): DLP = 893.88 (mGy-cm) Dictated By: Mervin Ortiz Signed By: Mervin Ortiz Signed Date/Time: 11/09/191744 DD/ 43 Discharge Plan Discharge Patient Disposition: Home, Self-Care Clinical Impression: Essential tremor Condition: Stable Prescriptions: No Action primidone 50 mg Tablet 50 mg PO TID RF: 0 propranolol 60 mg Tablet 60 mg PO DAILY RF: 0 amlodipine [Norvasc] 5 mg Tablet 5 mg PO DAILY RF: 0 tamsulosin [Flomax] 0.4 mg Capsule 0.4 mg PO DAILY RF: 0 hydrochlorothiazide 25 mg Tablet 12.5 mg PO DAILY RF: 0 lisinopril 40 mg Tablet 40 mg PO DAILY RF: 0 multivitamin Tablet 1 tab PO DAILY RF: 0 Discharge Orders: Discharge Order (Routine); Ordered 11/09/19 Ordered By: Karli Fraser Discharge Diet: Usual diet Discharge Activity: Resume usual activity Activity Restrictions/Additional Instructions: [facility]uation. Discharge Date/Time: 11/09/19 17:57 Coding Level of Care Code ED Dispatcher Refinery for Chg Fwd Exam Detailed
[2019-11-09 17:57] VITALS: BP 126/73; PULSE 72; RESP 18; O2SAT 97
== END 2019-11-09 17:57 | disposition home or self-care (01) ==
PROVIDERS: Emergency Provider Physician Assistant
DX: G25.0 Essential tremor (principal); F17.210 Nicotine dependence, cigarettes, uncomplicated
CPT/HCPCS: 12345; 70450; 99281; 99282